=== PATIENT | female | born 1985 | race Caucasian/White ===

== ENCOUNTER 2022-07-19 12:49 | Emergency (ER) | payer OTHER ==
[2022-07-19] MEDS ORDERED: Ibuprofen 200 MG TAB ONE (14:07)
== END 2022-07-19 14:14 | disposition home or self-care (01) ==
LOC: BURERS 12:49
DX: S90.32XA Contusion of left foot, initial encounter (principal); E11.9 Type 2 diabetes mellitus without complications; J45.909 Unspecified asthma, uncomplicated; X58.XXXA Exposure to other specified factors, initial encounter

== ENCOUNTER 2022-12-30 20:49 | Emergency (ER) | payer OTHER ==
[2022-12-30] MEDS ORDERED: Insulin Regular 300 UNITS/3 ML VIAL ONE (21:23)
== END 2022-12-30 22:39 | disposition home or self-care (01) ==
LOC: BURERS 20:49
DX: E11.65 Type 2 diabetes mellitus with hyperglycemia (principal); E11.40 Type 2 diabetes mellitus with diabetic neuropathy, unspecified; K21.9 Gastro-esophageal reflux disease without esophagitis; F17.210 Nicotine dependence, cigarettes, uncomplicated; E66.9 Obesity, unspecified; E07.9 Disorder of thyroid, unspecified; Z79.84 Long term (current) use of oral hypoglycemic drugs; Z79.899 Other long term (current) drug therapy
CPT/HCPCS: 36416; 99283; J1815

== ENCOUNTER 2023-02-21 13:33 | Emergency (ER) | payer OTHER | END 2023-02-21 14:00 | disposition home or self-care (01) | LOC: BURERS 13:33 | DX: J20.9 Acute bronchitis, unspecified (principal); F17.210 Nicotine dependence, cigarettes, uncomplicated | CPT/HCPCS: 71046 ==